=== PATIENT | male | born 1985 | race Caucasian/White ===

== ENCOUNTER 2017-08-02 10:25 | Emergency (ER) | payer SELFPAY ==
[2017-08-02] MEDS ORDERED: Fentanyl 100 MCG/2 ML VIAL ONE (10:30)
[2017-08-02] MEDS ORDERED: Ondansetron HCl/PF 4 MG/2 ML Vial ONE ×2 (10:30→11:06)
[2017-08-02 10:52] LABS: #Basophils 0.1 thou/uL (0.0-0.2); #Eosinphils 0.3 thou/uL (0.0-0.7); #Lymphocytes 3.8 thou/uL (1.20-3.40); #Monocytes 0.9 thou/uL (0.11-0.59); #Neutrophils 6.8 thou/uL (1.40-6.50); %Basophils 0.8 % (0.0-1.0); %Eosinophils 2.2 % (0.0-10.0); %Lymphocytes 32.1 % (21.0-51.0); %Monocytes 7.2 % (0.0-10.0); Hematocrit 43.7 % (42.0-52.0); Mean Platelet Volume 7.5 fL (7.4-10.4); Red Blood Cell (RBC) Count 4.95 mill/uL (4.70-6.10); White Blood Cell (WBC) Count 11.9 thou/uL (4.8-10.8)
--- NOTE | 2017-08-02 10:53 | RAD ---
2 VIEWS RIGHT ELBOW: Date: 08/02/17 HISTORY: Trauma. Right elbow pain. FINDINGS: Two oblique views of right elbow obtained. No definite evidence of right elbow fracture seen. True la teral film is difficult to obtain due to the distal radial fracture. IMPRESSION: Unremarkable oblique views right elbow. POS: [facility]
--- NOTE | 2017-08-02 10:53 | RAD ---
RIGHT WRIST 3 VIEWS: Date: 08/02/17 HISTORY: Trauma. COMPARISON: None. FINDINGS: There is a comminuted interarticular fracture of the distal radius with dorsal angulation and displac ement. Ulnar styloid fracture is present. Scapholunate interval is mildly widened. IMPRESSION: 1. Comminuted, impacted, dorsally angulated, and displaced distal radius fracture. 2. Displaced ulnar styloid fracture. 3. Mildly widened scapholunate interval. This will be assessed on follow-up imaging. POS: [facility]
[2017-08-02 11:01] LABS: PTT 24.3 SEC (22.9-36.1); Prothrombin Time 13.1 SEC (12.0-14.7)
[2017-08-02] MEDS ORDERED: Morphine 4 MG/ML VIAL ONE (11:06)
[2017-08-02 11:12] LABS: ALT (SGPT) 35 U/L (8-55); AST (SGOT) 30 U/L (5-34); Alkaline Phosphatase 55 U/L (40-150); Anion Gap 13 mmol/L (10-20); BUN (Urea Nitrogen) 16 mg/dL (8.9-20.6); Bilirubin, Total 0.3 mg/dL (0.2-1.2); Calc. Creatinine Clearance 0 mL/min (70-130); Calcium 9.6 mg/dL (7.8-10.44); Carbon Dioxide 22 mmol/L (22-29); Chloride 107 mmol/L (98-107); Estimated GFR-MDRD 70; Globulin 2.8 g/dL (2.4-3.5); Protein, Total 6.9 g/dL (6.0-8.3)
[2017-08-02] MEDS ORDERED: Ketorolac Tromethamine 30 MG/ML VIAL ONE (11:25)
--- NOTE | 2017-08-02 12:14 | CT ---
CT BRAIN WITHOUT CONTRAST: Date: 08/02/17 HISTORY: Level II trauma. Fall from a ladder of 20 ft. COMPARISON: None. FINDINGS: No hemorrhage. No infarct. Paranasal sinuses and mastoids are clear. Calvarium is intact. The soft ti ssues are unremarkable. IMPRESSION: No acute intracranial abnormality. POS: [facility]
--- NOTE | 2017-08-02 12:15 | CT ---
NONCONTRAST ENHANCED CT IMAGES OF CERVICAL SPINE: Date: 08/02/17 HISTORY: Trauma. Fall from ladder. FINDINGS: Noncontrast enhanced CT images of cervical spine demonstrate cervical spinal alignment to be within n ormal limits. No evidence of cervical spine fractures, subluxations, or bony lesions seen. The odonto id is unremarkable. IMPRESSION: Normal CT cervical spine. POS: [facility]
--- NOTE | 2017-08-02 12:16 | CT ---
CONTRAST ENHANCED CT IMAGES OF CHEST AND ABDOMEN AND PELVIS: Date: 08/02/17 HISTORY: Patient fell from ladder, trauma. TECHNIQUE: Contrast enhanced CT images of chest, abdomen, and pelvis performed after administration of IV contra st. FINDINGS: The lungs are well aerated. No evidence of hemo or pneumothorax seen. No obvious evidence of rib frac tures seen. The liver, spleen, gallbladder, pancreas, adrenal glands, and kidneys are unremarkable. N o evidence of abdominal or pelvic fractures seen. Sagittal and coronal reconstructed images of thoracic and lumbar spine demonstrate no evidence of tho racic or lumbar spine fractures. IMPRESSION: Normal contrast enhanced CT images of chest, abdomen, and pelvis. POS: [facility]
[2017-08-02] MEDS ORDERED: HYDROcodone/Acetaminophen 10/325 mg Tablet ONE (12:31)
== END 2017-08-02 13:00 | disposition home or self-care (01) ==
LOC: ERS 10:25
DX: S52.501A Unspecified fracture of the lower end of right radius, initial encounter for closed fracture (principal); S16.1XXA Strain of muscle, fascia and tendon at neck level, initial encounter; S20.219A Contusion of unspecified front wall of thorax, initial encounter; Z87.891 Personal history of nicotine dependence; W11.XXXA Fall on and from ladder, initial encounter
CPT/HCPCS: 29125; 36415; 70450; 71260; 72125; 74177; 80053; 85025; 85610; 85730; 96374; 96375; 96376; G0390; J1885; J2270; J2405; J3010

== ENCOUNTER 2017-08-05 10:24 | Day surgery (SDC) | payer BC ==
[2017-08-04 14:07] VITALS: BMI 30.9
[2017-08-05] MEDS ORDERED: CEFAZOLIN/Water 2 GM/20 ML SYRINGE ONE (10:56)
[2017-08-05] MEDS ORDERED: Midazolam HCl 2 mg/2 ml Vial ONE (11:00)
[2017-08-05] MEDS ORDERED: Fentanyl 100 MCG/2 ML VIAL ONE ×2 (11:00→13:00)
[2017-08-05] MEDS ORDERED: Ropivacaine 0.2% HCl/PF 20 ML ONE (11:00)
[2017-08-05] MEDS ORDERED: HYDROcodone/Acetaminophen 5/325 mg Tablet PO PRN ×2 (12:07)
[2017-08-05] MEDS ORDERED: Zolpidem Tartrate 5 MG TAB PO PRN (12:07)
[2017-08-05] MEDS ORDERED: Promethazine HCl 25 MG/ML VIAL IM PRN (12:07)
[2017-08-05] MEDS ORDERED: traMADol HCl 50 MG TAB PO PRN ×2 (12:07)
[2017-08-05] MEDS ORDERED: Ondansetron HCl/PF 4 MG/2 ML Vial IVP PRN (12:07)
[2017-08-05] MEDS ORDERED: Ropivacaine 0.2% 550 ML 550 ML NERVE BLCK SCH (12:07)
[2017-08-05] MEDS ORDERED: Fentanyl 100 MCG/2 ML VIAL SLOW IVP PRN (12:08)
[2017-08-05] MEDS ORDERED: Ondansetron HCl/PF 4 MG/2 ML Vial ONE ×3 (13:18→13:58)
[2017-08-05] MEDS ORDERED: Ketorolac Tromethamine 30 MG/ML VIAL ONE (13:58)
[2017-08-05] MEDS ORDERED: Lidocaine 1% PF 5 ML VIAL ONE (13:58)
[2017-08-05] MEDS ORDERED: Dexamethasone 20 MG/5 ML VIAL ONE (13:58)
[2017-08-05] MEDS ORDERED: PROPOFOL 200 MG/20 ML VIAL ONE (13:58)
--- NOTE | 2017-08-05 15:42 | OP ---
DATE OF SURGERY: 08/05/2017 PREOPERATIVE DIAGNOSIS: Right intraarticular comminuted distal radius fracture (greater than 3 fragm ents). POSTOPERATIVE DIAGNOSIS: Right intraarticular comminuted distal radius fracture (greater than 3 frag ments). SURGICAL PROCEDURE: Open reduction and internal fixation right distal radius. ANESTHESIA: General. SURGEON: Akhil Farias M.D. SUPERVISOR TRAVEL TRAILER: Chavez Martinez PA-C TOURNIQUET TIME: Approximately 1 hour at 250 mmHg. IMPLANTS: The Synthes 2.4 mm variable angle LCP volar plate, dual column was used. COMPLICATIONS: None. DRAINS: None. SPECIMEN: None. OUTCOME: Satisfactory. INDICATIONS: The patient is a 32-year-old gentleman status post fall from ladder sustaining a commin uted intraarticular distal radius fracture. This injury is now nearly a week old. After discussion with patient including risks and benefits, we decided to proceed with open reduction and internal fix ation in an attempt to restore normal architecture of the distal radius and restore the joint surface . Informed consent has been obtained. Timeout performed when patient arrived in the operating room. DESCRIPTION OF PROCEDURE: After the induction of general anesthesia, the patient was positioned supi ne on the OR table, then a sterile prep and drape was performed of the right upper extremity. The li mb was then exsanguinated with Esmarch bandage, tourniquet inflated to 250 mmHg. A volar skin incisi on was used and then the interval between the flexor carpi radialis and brachioradialis was exploited . The neurovascular bundle was swept to the radial side of the wound and then the pronator quadratus was released with the cuff off of the radial aspect of the distal radius. Next, the fracture was id entified. The fracture hematoma was lavaged from the wound and then with manipulation, the fracture was able to be reduced to near anatomic alignment. Next, K-wires were used for provisional fixation. With further manipulation of the K-wires, an acceptable alignment was obtained with jehovah's witness of radial inclination and length and jehovah's witness of volar tilt to a neutral position. With this, a vola r plate was then applied. This was held in place provisionally with a 2.7 mm cortical screw in the p roximal limb of the plate and then further manipulation of fracture performed and then 2.4 mm locking screw was placed in the distal limb of the plate. Two additional cortical screws were then placed p roximally and then final C-arm images were obtained and K-wires were then removed. The wound irrigat ed with normal saline and closed in layers with 2-0 Vicryl for the fascia of the pronator quadratus f ollowed by 2-0 Vicryl subcutaneously, and then nylon for the skin. A Xeroform gauze, Webril, and sug ar tong splint was applied to the forearm and then the tourniquet was let down. The patient was then transferred to recovery room in stable condition. He tolerated the procedure well.
--- NOTE | 2017-08-05 17:28 | RAD ---
RIGHT WRIST INTRAOPERATIVE FLUOROSCOPY THREE VIEWS: 08/05/17 HISTORY: Right wrist fracture. FINDINGS/IMPRESSION: Intraoperative fluoroscopy was provided for internal fixation as performed by Dr. Farias. Three spo t fluoroscopic images show volar compression plate and multiple screws to transfix the comminuted dis yakov radial fracture, in anatomic alignment. Fluoro time equals 38 seconds. POS: [facility]
[2017-08-05] MEDS ORDERED: Ketorolac Tromethamine 30 MG/ML VIAL IVP SCH (18:00)
== END 2017-08-05 16:46 | disposition home or self-care (01) ==
LOC: SDC 10:24
PROVIDERS: ATTEND Orthopaedic Surgery
PROC: 0PSH04Z Reposition Right Radius with Internal Fixation Device, Open Approach (ICD-10-PCS; principal; 2017-08-05)
DX: S52.571A Other intraarticular fracture of lower end of right radius, initial encounter for closed fracture (principal); F17.200 Nicotine dependence, unspecified, uncomplicated; Z98.890 Other specified postprocedural states
CPT/HCPCS: 76001; A4306; C1713; J0131; J1100; J1885; J2001; J2250; J2405; J2704; J2795; J3010

== ENCOUNTER → 2017-08-06 | Day surgery (SDC) | payer BC ==
[~2017-08-06] MED LIST: Fentanyl 100 MCG/2 ML VIAL ONE; Midazolam HCl 2 mg/2 ml Vial ONE
== END ==
LOC: SDC/OP 09:09
PROVIDERS: ATTEND Orthopaedic Surgery
PROC: 3E0T3BZ Introduction of Anesthetic Agent into Peripheral Nerves and Plexi, Percutaneous Approach (ICD-10-PCS; principal; 2017-08-06)
DX: M25.531 Pain in right wrist (principal)
CPT/HCPCS: J2250; J3010

== ENCOUNTER 2017-12-29 07:44 | Outpatient (CLI) | payer BC ==
--- NOTE | 2017-12-29 09:50 | CT ---
NONCONTRAST CT EXAMINATION OF THE WRIST: HISTORY: A 32-year-old male with followup prior surgery for a wrist fracture. Metal plate and screws stabilize the distal radius comminuted fracture. The middle 3 internal fixati on screws stabilizing the distal radius appear to extend up to the margin of the radiocarpal joint an d possibly minimally within the radiocarpal joint. There is at least 1 incompletely united dorsal mi nimally displaced fracture fragments which are incompletely united. There is some patchy bone demine ralization of the carpal bones which may well be related to disuse. Incompletely united ulnar styloi d process. IMPRESSION: Patchy bony demineralization of the carpal bones possibly related to disuse. It appears that the 3 m iddle fixation screws stabilizing the distal radius extend up to or possibly within the radiocarpal j oint. There is a somewhat prominent irregular dorsal displaced bone fragment which is incompletely u nited. POS: [facility]
== END 2017-12-29 07:45 | disposition home or self-care (01) ==
LOC: CT 07:44
PROVIDERS: ATTEND Orthopaedic Surgery Hand Surgery
DX: S52.501A Unspecified fracture of the lower end of right radius, initial encounter for closed fracture (principal); M25.831 Other specified joint disorders, right wrist; M81.8 Other osteoporosis without current pathological fracture

== ENCOUNTER 2018-01-11 05:46 | Day surgery (SDC) | payer BC ==
[2018-01-10 17:25] VITALS: BMI 30.1
[2018-01-11] MEDS ORDERED: Fentanyl 100 MCG/2 ML VIAL ONE ×4 (06:05→12:43)
[2018-01-11] MEDS ORDERED: HYDROmorphone 0.5 MG/0.5 ML SYRINGE ONE ×2 (06:06→11:52)
[2018-01-11] MEDS ORDERED: EPINEPHrine 1 MG/ML AMP ONE (06:58)
[2018-01-11] MEDS ORDERED: Bupivacaine PF 0.5% 30 ML VIAL ONE (06:58)
[2018-01-11 07:09] LABS: #Basophils 0.1 thou/uL (0.0-0.2); #Eosinphils 0.4 thou/uL (0.0-0.7); #Lymphocytes 3.6 thou/uL (1.20-3.40); #Monocytes 0.8 thou/uL (0.11-0.59); #Neutrophils 4.4 thou/uL (1.40-6.50); %Basophils 0.6 % (0.0-1.0); %Eosinophils 3.9 % (0.0-10.0); %Lymphocytes 39.2 % (21.0-51.0); %Monocytes 8.5 % (0.0-10.0); %Neutrophils 47.8 % (42.0-75.0); Hemoglobin 15.7 g/dL (14.0-18.0); Mean Corpuscular HGB CONC 34.6 g/dL (32.0-36.0); Mean Corpuscular Hemoglobin 29.7 pg (27.0-31.0); Mean Corpuscular Volume 85.9 fl (80.0-94.0); Mean Platelet Volume 7.4 fL (7.4-10.4); Platelet Count 208 thou/uL (130-400); RBC Distribution Width 11.9 % (11.5-14.5); Red Blood Cell (RBC) Count 5.28 mill/uL (4.70-6.10); White Blood Cell (WBC) Count 9.2 thou/uL (4.8-10.8)
[2018-01-11] MEDS ORDERED: Bacitracin Zinc Ointment 30 gm TUBE ONE (07:13)
[2018-01-11] MEDS ORDERED: Betamet Acet/Betamet Na Ph 30 MG/5 ML VIAL ONE (07:13)
[2018-01-11] MEDS ORDERED: CEFAZOLIN/Water 2 GM/20 ML SYRINGE ONE (07:22)
[2018-01-11 07:24] LABS: Anion Gap 8 mmol/L (10-20); BUN (Urea Nitrogen) 15 mg/dL (8.9-20.6); Calc. Creatinine Clearance 125 mL/min (70-130); Calcium 9.7 mg/dL (7.8-10.44); Carbon Dioxide 26 mmol/L (22-29); Chloride 107 mmol/L (98-107); Estimated GFR-MDRD Greater than 90; Glucose 98 mg/dL (70-105); Potassium 4.3 mmol/L (3.5-5.1); Sodium 137 mmol/L (136-145)
--- NOTE | 2018-01-11 11:35 | RAD ---
RIGHT WRIST INTRAOPERATIVE FLUOROSCOPY THREE VIEWS: HISTORY: Right wrist fracture. FINDINGS: Intraoperative fluoroscopy is provided for internal fixation, as performed by Dr. Henderson. Three fl uoroscopic images show improved alignment of the distal radius. A compression plate and multiple scr ews transfix the distal radius. Wires lie obliquely across the medial carpus. POS: [facility]
[2018-01-11] MEDS ORDERED: Ketorolac Tromethamine 30 MG/ML VIAL ONE ×2 (12:01→16:10)
--- NOTE | 2018-01-11 12:21 | OP ---
DATE OF PROCEDURE: 01/11/2018 POSTOPERATIVE DIAGNOSES: 1. Right triangular fibrocartilage tear with possible carpal ligament tear. 2. Screw migration into the joint from distal radius fracture. 3. Very tight volar wrist capsule. POSTOPERATIVE FINDINGS: 1. Radiocarpal screw migration x2 into the wrist joint with 1 screw 1.5 mm protruding. 2. Severe synovitis centered around the medial complex where the screw protrusion took place. 3. New triangular fibrocartilage tear. 4. Joint contracture. 5. No intra-articular fragment gaps or nonunion within the joint seen. 6. Extraarticular mild bone hypertrophy over the dorsal ridge. 7. No visible ligamentous or nonunion abnormality seen at the ulnar styloid complex distal radial ul rosa joint. PROCEDURE PERFORMED: 1. Arthroscopic synovectomy, right wrist. 2. Volar capsulotomy right wrist. 3. Joint manipulation, right wrist. 4. Arthroscopic chondroplasty of the lunate and the lunate malacia with the synovial changes. 5. Open distal radius plate removal, Synthes, low profile distal radius plate. SURGEON: Dr. Ronaldo Henderson SPECIMEN REMOVED: Plate and screws. INDICATIONS: The patient is now 7-1/2 months of distal radius fracture, has no pain, but has very li ttle motion, reports intermittent swelling with activity almost on an every other day basis and radio graphically CT scan showed possible screw protrusion, narrowing without evidence of instability, but we could not evaluate his triangular fibrocartilage area where he had an ulnar styloid type 1 fractur e. DESCRIPTION OF PROCEDURE: After successful general LMA technique, the limb was prepped and draped. Timeout was done appropriately. A standard inline traction arm trejo with the elbow well padded at 90 degrees was used with approximately 10 pounds of traction applied. We then established the 3-4, 6 U, 6R portals on the permanent view of the wrist. There was marked synovitis to the point, we had to do multiple attempts before we expanded the joint enough with fluid and was able to see from the uln ar side of the wrist joint to the radial side. We performed the synovectomy and only after performin g a complete synovectomy could we see the screw protrusions. 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 We then completed complete synovectomy, evaluated triangular fibrocartilage found no tear. We evaluated the ulnar styloid found no ligament ous area. The radial and ulnar recess was without bone or soft tissue abnormality. The intercarpal ligaments were intact to include probing. There is no visible instability with and without traction. We now irrigated the joint after finishing the synovectomy. We removed the intra-articular instrum entation, closed the portals, using 4-0 nylon, and then removed the arthroscopic assist device. We t sandra exsanguinated the limb, inflated the tourniquet to 250 mmHg pressure and this would last for 28 m inutes. It had been well padded before the procedure. We then used his previous incision, carried t hrough the skin and subcutaneous tissue. The end of the interval between the flexor carpi radialis a nd the radial artery, identified the median nerve, protected it and then went straight down to follow the old scar to reach the pronator quadratus. Here, we then made an L-shaped incision pronator quad ratus to expose the plate. Before we removed the plate and screws we did a complete capsulotomy to p rotect the median nerve ulnarly and the radial and ulnar along all the tendons. We then could take h im from a passive motion of only 20 degrees of palmar flexion to 75 of palmar flexion. We verified t his on radiographs. We took him from only 20 degrees passive dorsiflexion to 75 degrees passive dors iflexion. He then had a palmar flexion after the synovectomy passively of 85 degrees. Now we released the capsule and perform approximately a 3 mm capsulectomy so would not go back readil y and it was free out to the level of the biceps brachioradialis. We then removed the plate and scre ws using the appropriate Synthes screwdriver, performed radiographs that showed there was no loss of the tilt and the tilt compared to the opposite side was only approximately 77 degrees of difference s o we did not perform osteotomy, he had an ulnar neutral wrist. We did not perform shortening in the face of an intact TFCC without evidence of intercondylar ligament disruption. We then released the t ourniquet, closed the pronator quadratus with interrupted 0 Vicryl, undyed, closed subcutaneous tissu e with running 4-0 Monocryl, used 4-0 nylon for the skin, for the epidermal closure and the portal cl osure. He had a total of 20 mL 0.5% Marcaine injection and he left the operating room without eviden ce of anesthetic or operative complication in a palmar splint with plans for therapy aggressive this week.
[2018-01-11] MEDS ORDERED: HYDROcodone/Acetaminophen 5/325 mg Tablet ONE (13:42)
[2018-01-11] MEDS ORDERED: Succinylcholine Chloride 20 MG/ML 10 ml SYRINGE FS ONE (16:10)
[2018-01-11] MEDS ORDERED: Ondansetron HCl/PF 4 MG/2 ML Vial ONE (16:10)
[2018-01-11] MEDS ORDERED: Dexamethasone 20 MG/5 ML VIAL ONE (16:10)
[2018-01-11] MEDS ORDERED: Lidocaine 1% PF 5 ML VIAL ONE (16:10)
[2018-01-11] MEDS ORDERED: PROPOFOL 200 MG/20 ML VIAL ONE (16:10)
[2018-01-11] MEDS ORDERED: Metoclopramide HCl 10 MG/2 ML VIAL ONE (16:10)
== END 2018-01-11 14:20 | disposition home or self-care (01) ==
LOC: SDC 05:46
PROVIDERS: ATTEND Orthopaedic Surgery Hand Surgery
PROC: 0PPH04Z Removal of Internal Fixation Device from Right Radius, Open Approach (ICD-10-PCS; principal; 2018-01-11)
PROC: 0RBN4ZZ Excision of Right Wrist Joint, Percutaneous Endoscopic Approach (ICD-10-PCS; principal; 2018-01-11)
DX: T84.122A Displacement of internal fixation device of bone of right forearm, initial encounter (principal); T84.192A Other mechanical complication of internal fixation device of bone of right forearm, initial encounter; M65.831 Other synovitis and tenosynovitis, right forearm; M24.531 Contracture, right wrist
CPT/HCPCS: 76001; 80048; 85025; 96372; 96374; J0131; J0171; J0702; J1100; J1170; J1885; J2001; J2405; J2704; J2765; J3010; S0020

== ENCOUNTER 2024-02-28 10:51 | Emergency (ER) | payer BC ==
[2024-02-28 12:14] LABS: Bilirubin Negative (Negative); Blood, Urine 3+ (Negative); CAUTI Indications for Culture Dysuria,urgency,freq; Clarity Turbid (Clear); Glucose, Urine (Dipstick) Normal (Negative); Ketone, Urine Negative (Negative); Leukocyte Negative Leu/uL (Negative); Nitrite Negative (Negative); Protein, Urine (Dipstick) 30 mg/dL (Neg-Trace); Squamous Epithelial None Seen HPF (0-3); Urobilinogen Normal mg/dL (Less than 2); WBC/HPF 0-3 HPF (0-3); pH, Urine 5.5 (5.0-9.0)
[2024-02-28 12:26] LABS: #Basophils 0.03 10x3/uL (0.0-0.2); %Basophils 0.2 % (0.0-1.0); %Eosinophils 0.3 % (0.0-10.0); %Monocytes 5.8 % (0.0-10.0); %Neutrophils 70.8 % (42.0-75.0); Hematocrit 47.6 % (42.0-52.0); Mean Corpuscular HGB CONC 33.6 g/dL (32.0-36.0); Mean Corpuscular Hemoglobin 28.2 pg (27.0-31.0); Mean Corpuscular Volume 83.8 fL (78.0-98.0); Platelet Count 299 10x3/uL (130-400); Red Blood Cell (RBC) Count 5.68 mill/uL (4.70-6.10)
[2024-02-28 12:27] LABS: Bacteria/HPF 1+ HPF (None Seen)
[2024-02-28 12:28] LABS: Yeast-Budding Rare HPF (None Seen)
[2024-02-28 12:29] LABS: Urine Culture Reflex No No
[2024-02-28] MEDS ORDERED: Ondansetron PF 4 MG/2 ML Vial ONE (12:32)
[2024-02-28] MEDS ORDERED: Ketorolac Tromethamine 30 MG (1 mL) VIAL ONE (12:32)
[2024-02-28 12:49] LABS: ALT (SGPT) 30 U/L (8-55); AST (SGOT) 17 U/L (5-34); Albumin 4.2 g/dL (3.5-5.0); Alkaline Phosphatase 64 U/L (40-110); Anion Gap 14 mmol/L (10-20); BUN (Urea Nitrogen) 20 mg/dL (8.9-20.6); Bilirubin, Total 0.3 mg/dL (0.2-1.2); Calc. Creatinine Clearance 0 mL/min (70-130); Calcium 9.9 mg/dL (7.8-10.44); Carbon Dioxide 23 mmol/L (22-29); Chloride 108 mmol/L (98-107); Estimated GFR 81; Globulin 3.4 g/dL (2.4-3.5); Glucose 122 mg/dL (70-105); Lipase 24 U/L (8-78); Protein, Total 7.6 g/dL (6.0-8.3); Sodium 141 mmol/L (136-145)
[2024-02-28] MEDS ORDERED: Morphine 4 MG/ML VIAL ONE (13:26)
== END 2024-02-28 14:35 | disposition home or self-care (01) ==
LOC: ERS 10:51
DX: N20.2 Calculus of kidney with calculus of ureter (principal); F17.290 Nicotine dependence, other tobacco product, uncomplicated; G47.00 Insomnia, unspecified; Z79.899 Other long term (current) drug therapy
CPT/HCPCS: 36415; 74176; 80053; 81001; 83690; 85025; 87086; 96374; 96375; J1885; J2270; J2405